=== PATIENT | male | born 1940 | race Caucasian/White ===

== ENCOUNTER 2022-11-30 15:08 | Emergency (ER) | payer OTHER ==
[~2022-11-30] VITALS: Ht 162.6 cm; Wt 72.7 kg
[2022-11-30 15:54] VITALS: BP 155/68
[2022-11-30] MEDS ORDERED: CYCL-394 PO (18:56)
== END 2022-11-30 19:03 | disposition home or self-care (01) ==
LOC: ER 15:09
DX: M54.2 Cervicalgia (principal); M62.838 Other muscle spasm
CPT/HCPCS: 99283